=== PATIENT | female | born 1990 | race Caucasian/White ===

== ENCOUNTER 2020-09-28 17:37 | Emergency (ER) | payer OTHER, SELFPAY ==
[2020-09-28 18:28] VITALS: BP 118/69; PULSE 60; RESP 18; TEMP 36.5; O2SAT 99; BMI 27.3
--- NOTE | 2020-09-28 19:49 | ED_ITS ---
HPI - URI/Sore Throat General Chief Complaint: Dizziness Stated Complaint: multiple complaints Time Seen by Provider: 09/28/20 20:43 Source: patient Mode of arrival: ambulatory Limitations: no limitations History of Present Illness HPI Narrative: 30-year-old female presents with upper respiratory symptoms, dizziness, and intermittent episodes of sweating. [facility] for further evaluation. At this time patient states to have a cough, wheezing, bilateral ear pain, dizziness and fatigue. She did have a COVID-19 test yesterd ay and is waiting For results. She does not describe palpitations, abdominal pain, abdominal distention, dysuria, chills, nausea, vomiting, diarrhea, constipation, and edema. MD elicited complaint: cough and nasal congestion Consistency: constant Severity: moderate Able to tolerate fluids by mouth: Yes Exacerbating factors: exertion and changing head position Relieving factors: nothing Associated symptoms: fever, chills, myalgias, diaphoresis, nasal congestion, sore throat and cough Treatments prior to arrival: none Related Data Previous Rx's Medication Instructions Recorded amoxicillin-pot clavulanate 1 tab PO Q12H 10 Days #20 tab 09/28/20 [Augmentin] azithromycin [Zithromax Z-Garret] See Rx Instructions .ROUTE 09/28/20 .COMPLEX #6 tab ibuprofen 600 mg PO Q6H PRN #30 tab 09/28/20 Allergies Allergy/AdvReac Type Severity Reaction Status Date / Time No Known Allergies Allergy Verified 09/28/20 18:31 Review of Systems Review of Systems: Constitutional: No Weight loss, Subjective Fever, positive Chills, Night Sweats and Fatigue ENT/Mouth: No Hearing loss, Positive Ear Pain and Nasal Congestion, No Sinus Pain, No Hoarseness, Positive sore throat Eyes: No Eye Pain, No Swelling, No Redness, No Foreign Body, No Discharge, No Vision Changes Cardiovascular:No Chest Pain, pos SOB, no Dyspnea on Exertion, No Orthopnea, No Edema, No Palpitations Respiratory: Positive Cough, No Sputum, No Wheezing, No Smoke Exposure, No Dyspnea Gastrointestinal: Positive Nausea, No Vomiting, No Diarrhea, No abdominal Pain, No Hematochezia, No Melena Genitourinary: No irregular bleeding, No Dysuria, No Urinary Frequency, No Hematuria, No Urinary Incontinence, No Urgency, No Flank Pain, No Urinary Flow C hanges, No Hesitancy Musculoskeletal: No joint pain, No Myalgias, No Joint Swelling Skin: No Skin Lesions, No rash Neuro: No Weakness, No Numbness, No Paresthesias, No Loss of Consciousness, Positive Dizziness, No Headache Psych: No Anxiety/Panic, No Depression, No SI/HI/AH/VH Heme/Lymph: No Bruising, No Bleeding,No Lymphadenopathy Endocrine: No Polyuria, No Polydipsia, No Temperature Intolerance [facility] Past Medical History Attestation statement: The following information was validated with the patient. Source: unable to obtain Medical History No known health problems Social History Social History Advance Directives: No Advance Directives Information Provided: No Physical Exam Vital Signs: Vital Signs: Last Vital Signs Temp 98.6 F 09/28/20 22:00 Pulse 60 09/28/20 22:00 Resp 14 09/28/20 22:00 BP 128/70 09/28/20 22:00 Pulse Ox 100 09/28/20 22:00 Body Mass Index 27.3 Appearance: Alert. Oriented X3. Mild distress. Head: Normal external exam. Normocephalic. Atraumatic. No Martinez signs noted. No raccoon eyes noted Eyes: PERRLA. EOMI. Conjunctiva and sclera normal. Eyelids normal. ENT: TM's Normal. Pharynx normal. Uvula midline. Moist mucous membranes. No trismus noted. No drooling noted. No muffled voice noted. Neck: Normal inspection. Neck supple. No adenopathy. No meningeal signs. No neck mass noted. CVS: Normal heart rate and rhythm. Heart sound normal. No murmurs noted. Pulses equal to all extremities. Respiratory: No respiratory distress. Painless inspiration. Breath sounds normal. No wheezes/rales/rhonchi noted. Chest nontender. No accessory muscle usage noted or decreased air movement noted. Abdomen: Soft and nontender. Bowel sounds normal in all 4 quadrants. No distention noted. No organomegaly noted. No visible injury noted. Back: No CVA tenderness. Full range of motion noted. Skin: Skin warm and dry. Normal skin color. Normal skin turgor. No rashes/lesions/lacerations noted. Extremities: No lower extremity edema. Extremities exhibit normal range of motion. Extremities nontender. Neuro: cranial nerves 2-12 intact, no focal neural deficits, strength 5/5 to all extremities, No motor deficit. No sensory deficit. Reflexes normal. Course Course Course Narrative: 30-year-old female with no significant past medical history presents with dizziness, and multiple upper respiratory symptoms. Plan of care is to rule out pneumonia, , infection, ACS and pneumonia. Chest x-ray indicates pneumonia, pneumonitis in the right lower lobe, EKG is normal sinus rhythm, white count is elevated at 11.4. CT scan of head is negative for acute findings. Plan of care is to treat for pneumonia and UTI. We will give azithromycin and Augmentin. Patient is not septic, lactic acid is 0.8, patient continues to be afebrile heart rate in the 60s blood pressure hemodynamically stable and within normal limits. Detailed description regarding antibiotic use, and signs and symptoms indicating need for further medical attention and or emergent care. Patient verbalized understanding of and agrees to plan of care discharge home. She does understand that she must maintain social isolation per state and Federal regulations as her COVID-19 test is still pending. It is highly unlikely that this is COVID-19 as this pneumonitis /pneumonia is right lower lobe verses bilateral ground-glass opacities. patient verbalizes understanding of and agrees to plan of care to [facility] Reevaluation(s) Reevaluation #1: labs still pending Time: 21:19 MDM - URI/Sore Throat Differential Diagnosis Differential diagnosis: Likely upper respiratory infection, otitis media, sinusitis, viral infection, bronchitis, influenza and pharyngitis Medical Records Attestation: I reviewed the patient's medical records. Lab Data Attestation: I reviewed the patient's lab results. Result diagrams: 09/28/20 04:58 09/28/20 20:58 Labs: Lab Results 09/28/20 09/28/20 09/28/20 Range/Units 04:58 20:46 20:58 WBC 11.4 H (4.8-10.8) X10*3/uL RBC 4.36 (4.20-5.50) X10*6/uL Hgb 13.7 (12.0-16.0) g/dl Hct 41.7 (37-47) % MCV 95.6 (80-98) fL MCH 31.4 (27.0-33.0) pg MCHC 32.9 (31.0-35.0) g/dl RDW 12.0 (11.0-16.0) % Plt Count 223 (160-400) X10*3/uL MPV 11.7 (9.4-12.3) fL Immature Gran % (Auto) 0.4 (0.0-0.4) % Neut % (Auto) 47.4 (45-73) % Lymph % (Auto) 39.6 (20-40) % [place] % (Auto) 8.9 (2-11) % Eos % (Auto) 3.3 (0-4) % Baso % (Auto) 0.4 (0-2) % Lymph # (Auto) 4.5 (1.2-4.9) X10*3/uL [place] # (Auto) 1.0 (0.1-1.2) X10*3/uL Eos # (Auto) 0.4 (0.0-0.4) X10*3/uL Baso # (Auto) 0.1 (0.0-0.2) X10*3/uL Abs Immat Gran (auto) 0.04 H (0.00-0.03) X10*3/uL Absolute Neuts (auto) 5.4 (2.0-8.3) X10*3/uL Absolute Nucleated RBC 0.000 (0.0-0.012) X10*3/uL Nucleated RBC % (auto) 0.0 (0.0-0.2) /100WBC Sodium 138 (135-145) mmol/L Potassium 4.6 (3.3-5.1) mmol/l Chloride 104 (96-108) mmol/L Carbon Dioxide 27 (22-29) mmol/L Anion Gap 12 (12-20) BUN 8 L (9-16) mg/dL Creatinine 0.79 (0.5-1.4) mg/dL Estim Creat Clear Calc 97.7 Estimated GFR > 60 Random Glucose 95 (60-115) mg/dL Lactic Acid (0.5-2.0) mmol/L Calcium 8.6 (8.4-10.2) mg/dL Magnesium 2.0 (1.6-2.6) mg/dL Urine Color STRAW Urine Appearance CLEAR Urine pH 5.5 (5.0-8.0) Ur Specific Melissa <= 1.005 (1.005-1.025) Urine Protein NEG (NEG-TRACE) MG/DL Urine Glucose (UA) NEG (NEG) MG/DL Urine Ketones NEG (NEG) MG/DL Urine Blood TRACE (NEG) Urine Nitrite NEG (NEG) Ur Leukocyte Esterase 2+ H (NEG) Urine RBC 0-2 (0) /HPF Urine WBC 1-4 (0-4) /HPF Ur Squamous Epith Cells 1+ /LPF Urine Bacteria 1+ /LPF Urine Test NEGATIVE (NEGATIVE) 09/28/20 Range/Units 20:58 WBC (4.8-10.8) X10*3/uL RBC (4.20-5.50) X10*6/uL Hgb (12.0-16.0) g/dl Hct (37-47) % MCV (80-98) fL MCH (27.0-33.0) pg MCHC (31.0-35.0) g/dl RDW (11.0-16.0) % Plt Count (160-400) X10*3/uL MPV (9.4-12.3) fL Immature Gran % (Auto) (0.0-0.4) % Neut % (Auto) (45-73) % Lymph % (Auto) (20-40) % [place] % (Auto) (2-11) % Eos % (Auto) (0-4) % Baso % (Auto) (0-2) % Lymph # (Auto) (1.2-4.9) X10*3/uL [place] # (Auto) (0.1-1.2) X10*3/uL Eos # (Auto) (0.0-0.4) X10*3/uL Baso # (Auto) (0.0-0.2) X10*3/uL Abs Immat Gran (auto) (0.00-0.03) X10*3/uL Absolute Neuts (auto) (2.0-8.3) X10*3/uL Absolute Nucleated RBC (0.0-0.012) X10*3/uL Nucleated RBC % (auto) (0.0-0.2) /100WBC Sodium (135-145) mmol/L Potassium (3.3-5.1) mmol/l Chloride (96-108) mmol/L Carbon Dioxide (22-29) mmol/L Anion Gap (12-20) BUN (9-16) mg/dL Creatinine (0.5-1.4) mg/dL Estim Creat Clear Calc Estimated GFR Random Glucose (60-115) mg/dL Lactic Acid 0.8 (0.5-2.0) mmol/L Calcium (8.4-10.2) mg/dL Magnesium (1.6-2.6) mg/dL Urine Color Urine Appearance Urine pH (5.0-8.0) Ur Specific Melissa (1.005-1.025) Urine Protein (NEG-TRACE) MG/DL Urine Glucose (UA) (NEG) MG/DL Urine Ketones (NEG) MG/DL Urine Blood (NEG) Urine Nitrite (NEG) Ur Leukocyte Esterase (NEG) Urine RBC (0) /HPF Urine WBC (0-4) /HPF Ur Squamous Epith Cells /LPF Urine Bacteria /LPF Urine Test (NEGATIVE) Imaging Data Chest x-ray: Attestation: I personally reviewed and interpreted this imaging study as follows: Radiologist's impression: TECHNIQUE: Frontal view of the chest was obtained. FINDINGS: Lung volumes are low but there is mild diffuse interstitial prominence.. Hazy opacity at the right lateral lung base. No definite pleural effusion. No pneumothorax. Normal heart size. Regional skeleton intact. XR/XR chest 1V IMPRESSION: There are low lung volumes with mild diffuse interstitial prominence. Although this could reflect bronchovascular crowding in the setting of low lung volumes, given the hazy opacity at the right lung base, interstitial pneumonitis including viral pneumonitis should be considered. CT scan - head: Attestation: I personally reviewed and interpreted this imaging study as follows: Radiologist's impression: CT HEAD WITHOUT CONTRAST CLINICAL INFORMATION: Dizziness. COMPARISON: No relevant prior imaging. TECHNIQUE: Contiguous axial imaging was performed from the skull base to vertex without intravenous administration of contrast. This CT examination was performed using dose optimization techniques as appropriate, variously including the following: *Automated exposure control *Adjustment of mA and/or kV according to patient size (this includes techniques or standardized protocols for targeted exams where dose is matched to indication/reason for exam; i.e. extremities or head) *Use of iterative reconstruction technique DLP: 647 mGy-cm FINDINGS: There is no acute intracranial hemorrhage or abnormal extra-axial collection. No intracranial mass effect or midline shift. Lateral and third ventricles are normal. No hydrocephalus. Giraldo-white matter differentiation is preserved and there is no evidence of acute territorial infarct. The calvarium and skull base are intact. Mastoid air cells and middle ear cavities are well aerated. Mild to moderate paranasal sinus disease is partially included within the [id number] of this examination. CT/CT head/brain wo con IMPRESSION: Unremarkable CT scan of the head. ECG Data Attestation: I personally reviewed and interpreted this ECG as follows: ECG interpretation date: 09/28/20 ECG interpretation time: 20:31 Interpretation: Vent. Rate : 051 BPM Atrial Rate : 051 BPM P-R Int : 130 ms QRS Dur : 080 ms QT Int : 460 ms P-R-T Axes : 036 056 040 degrees QTc Int : 423 ms Sinus bradycardia Otherwise normal ECG No previous ECGs available Discharge Plan Discharge Clinical Impression: Pneumonia Qualifiers: Pneumonia type: due to unspecified organism Laterality: right Lung location: lower lobe of lung Qualified Code(s): J18.9 - Pneumonia, unspecified organism UTI (urinary tract infection) Qualifiers: Urinary tract infection type: acute cystitis Hematuria presence: without hematuria Qualified Code(s): N30.00 - Acute cystitis without hematuria Patient Disposition: Home, Self-Care Instructions: Pneumonitis (ED), Urinary Tract Infection in Women (ED), Pneumonia (ED) Additional Instructions: you were evaluated for dizziness, and upper respiratory symptoms. Chest x-ray indicates pneumonia on the right lower lobe. Your COVID-19 test is pending. Please maintain social isolation until your test results return. The CT scan of your Brain was negative for acute findings. Urinalysis indicates UTI. please alternate Tylenol and Motrin as needed for pain management and fever control. Write down what time you take these medications to prevent overdose. We prescribed antibiotics azithromycin. Please take this medication as directed. We also prescribed Augmentin. Please take this medication as prescribed and complete the entire course of these medications. Drink plenty of fluids. If your symptoms persist or get worse please return to the emergency department immediately. Thank you for choosing this emergency department for evaluation. Please follow-up with primary care physician as needed. Return to the emergency department for any new, concerning, or worsening symptoms. Prescriptions: New azithromycin [Zithromax Z-Garret] 250 mg tablet See Rx Instructions .ROUTE .COMPLEX Qty: 6 RF: 0 amoxicillin-pot clavulanate [Augmentin] 875-125 mg tablet 1 tab PO Q12H 10 Days Qty: 20 RF: 0 ibuprofen 600 mg tablet 600 mg PO Q6H PRN (Reason: fever or pain) Qty: 30 RF: 0 Interventions: ED Discharge Assessment Last Done: 09/28/20 22:26 Discharge Date/Time: 09/28/20 22:32
--- NOTE | 2020-09-28 19:51 | ECG_ITS ---
Test Reason : DIZZINESS Blood Pressure : / mmHG Vent. Rate : 051 BPM Atrial Rate : 051 BPM P-R Int : 130 ms QRS Dur : 080 ms QT Int : 460 ms P-R-T Axes : 036 056 040 degrees QTc Int : 423 ms Sinus bradycardia Otherwise normal ECG No previous ECGs available Referred By: Maryanne Fleming Electronically Signed By:GREG SMITH MD
--- NOTE | 2020-09-28 19:52 | CT_ITS ---
EXAMINATION: CT HEAD WITHOUT CONTRAST CLINICAL INFORMATION: Dizziness. COMPARISON: No relevant prior imaging. TECHNIQUE: Contiguous axial imaging was performed from the skull base to vertex without intravenous administration of contrast. This CT examination was performed using dose optimization techniques as appropriate, variously including the following: *Automated exposure control *Adjustment of mA and/or kV according to patient size (this includes techniques or standardized protocols for targeted exams where dose is matched to indication/reason for exam; i.e. extremities or head) *Use of iterative reconstruction technique DLP: 647 mGy-cm FINDINGS: There is no acute intracranial hemorrhage or abnormal extra-axial collection. No intracranial mass effect or midline shift. Lateral and third ventricles are normal. No hydrocephalus. Giraldo-white matter differentiation is preserved and there is no evidence of acute territorial infarct. The calvarium and skull base are intact. Mastoid air cells and middle ear cavities are well aerated. Mild to moderate paranasal sinus disease is partially included within the [id number] of this examination. CT/CT head/brain wo con IMPRESSION: Unremarkable CT scan of the head.
--- NOTE | 2020-09-28 19:58 | XR_ITS ---
EXAMINATION: XR CHEST CLINICAL INFORMATION: Cough COMPARISON: None TECHNIQUE: Frontal view of the chest was obtained. FINDINGS: Lung volumes are low but there is mild diffuse interstitial prominence.. Hazy opacity at the right lateral lung base. No definite pleural effusion. No pneumothorax. Normal heart size. Regional skeleton intact. XR/XR chest 1V IMPRESSION: There are low lung volumes with mild diffuse interstitial prominence. Although this could reflect bronchovascular crowding in the setting of low lung volumes, given the hazy opacity at the right lung base, interstitial pneumonitis including viral pneumonitis should be considered.
--- NOTE | 2020-09-28 20:24 | PC.NURSE ---
PT TO ED WITH C/O DIZZINESS. PT ARRIVES ALERT, RESPIRATIONS EASY, N/L.
[2020-09-28 20:43] VITALS: BP 122/72; PULSE 52; RESP 12; TEMP 37; O2SAT 99
[2020-09-28 20:53] LABS: Glucose Urine UA NEG (NEG); Leukocyte Esterase Urine 2+ (NEG); Nitrite Urine NEG (NEG); PH 5.5 (5.0-8.0); Specific Gravity - Urine <= 1.005 (1.005-1.025); Urine Blood TRACE (NEG); Urine Ketones NEG (NEG); Urine Protein NEG (NEG-TRACE)
[2020-09-28 20:54] LABS: Appearance Urine CLEAR; Color Urine STRAW
[2020-09-28 20:55] LABS: UPreg QC Valid YES; Urine Pregnancy NEGATIVE (NEGATIVE)
[2020-09-28 20:59] LABS: Bacteria Urine 1+ /LPF; RBC Urine 0-2 /HPF (0); Squamous Epithelial Cell Urine 1+ /LPF
[2020-09-28 21:22] LABS: Basophils Absolute Auto 0.1 X10*3/uL (0.0-0.2); Basophils Percent Auto 0.4 % (0-2); Eosinophils Absolute Auto 0.4 X10*3/uL (0.0-0.4); Eosinophils Percent Auto 3.3 % (0-4); Hematocrit 41.7 % (37-47); Hemoglobin 13.7 g/dl (12.0-16.0); Imm Gran Abs Auto 0.04 X10*3/uL (0.00-0.03); Imm Gran Pct Auto 0.4 % (0.0-0.4); Lymphocytes Absolute Auto 4.5 X10*3/uL (1.2-4.9); Lymphocytes Percent Auto 39.6 % (20-40); MANUAL DIFF FLAG NO; Mean Corpuscular HGB Conc 32.9 g/dl (31.0-35.0); Mean Corpuscular Hemoglobin 31.4 pg (27.0-33.0); Mean Corpuscular Volume 95.6 fL (80-98); Mean Platelet Volume 11.7 fL (9.4-12.3); Monocytes Percent Auto 8.9 % (2-11); Neutrophils Absolute Auto 5.4 X10*3/uL (2.0-8.3); Neutrophils Percent Auto 47.4 % (45-73); Platelet Count 223 X10*3/uL (160-400); Red Blood Count 4.36 X10*6/uL (4.20-5.50); White Blood Count 11.4 X10*3/uL (4.8-10.8)
[2020-09-28] MEDS: Albuterol Sulfate 90 MCG 8 GM INHALER 2 PUFF INHALE (21:33)
[2020-09-28 21:45] LABS: Lactic Acid 0.8 mmol/L (0.5-2.0)
[2020-09-28 21:50] LABS: Anion Gap 12 (12-20); Blood Urea Nitrogen 8 mg/dL (9-16); Calcium 8.6 mg/dL (8.4-10.2); Carbon Dioxide 27 mmol/L (22-29); Chloride 104 mmol/L (96-108); Creatinine Clr Calc Pharmacy 97.7; Estimated Glomerular Filt Rate > 60; Glucose Random 95 mg/dL (60-115); Potassium 4.6 mmol/l (3.3-5.1); Sodium 138 mmol/L (135-145)
[2020-09-28 22:00] VITALS: BP 128/70; PULSE 60; RESP 14; TEMP 37; O2SAT 100
[2020-09-28] MEDS: Azithromycin 500 MG TABLET PO (22:08)
[2020-09-28] MEDS: Amoxicillin/Potassium Clav 875 MG TABLET PO (22:08)
== END 2020-09-28 22:32 | disposition home or self-care (01) ==
PROVIDERS: Nurse Practitioner Family; Emergency Provider Emergency Medicine Emergency Medical Services
DX: J18.9 Pneumonia, unspecified organism (principal); N30.00 Acute cystitis without hematuria; R42 Dizziness and giddiness; Z79.899 Other long term (current) drug therapy
CPT/HCPCS: 36415; 70450; 71045; 80048; 81001; 81025; 83605; 83735; 85025; 87040; 93005; 94640; 99283; 99284